=== PATIENT | male | born 1995 | race Caucasian/White ===

== ENCOUNTER 2019-04-25 21:59 | Emergency (ER) | payer BC, OTHER ==
[~2019-04-25] VITALS: Ht 185.4 cm; Wt 100.5 kg
[2019-04-25 22:45] VITALS: BP 152/55
== END 2019-04-25 23:49 | disposition home or self-care (01) ==
LOC: ER 22:00
DX: S92.352A Displaced fracture of fifth metatarsal bone, left foot, initial encounter for closed fracture (principal); W22.8XXA Striking against or struck by other objects, initial encounter; Y93.89 Activity, other specified; Y92.89 Other specified places as the place of occurrence of the external cause; Y99.8 Other external cause status
CPT/HCPCS: 73630; 99283